=== PATIENT | female | born 1980 | race Caucasian/White ===

== ENCOUNTER 2023-06-21 09:49 | Emergency (ER) | payer MEDICAID, OTHER ==
[~2023-06-21] VITALS: Ht 152.4 cm; Wt 66.9 kg
[~2023-06-21 09:49] MED LIST: PRENATAL VITS.; TYLENOL
[2023-06-21 10:05] VITALS: BP 129/84; PULSE 78; RESP 19; TEMP 97.7; O2SAT 95
[2023-06-21] MEDS ORDERED: MECL-303 PO (10:56)
[2023-06-21] MEDS ORDERED: OXYM20SP1 NS (10:56)
[2023-06-21 11:05] VITALS: O2SAT 95
[2023-06-21] MEDS: MECLIZINE 25 MG TAB PO ONE (11:06)
== END 2023-06-21 11:11 | disposition home or self-care (01) ==
LOC: MED 09:49
DX: B34.9 Viral infection, unspecified (principal); R42 Dizziness and giddiness; Z79.899 Other long term (current) drug therapy
CPT/HCPCS: 99282; J8597